=== PATIENT | female | born 1985 | race Caucasian/White ===

== ENCOUNTER → 2016-04-25 | Outpatient (CLI) | payer MEDICAID ==
[~2016-04-25] MED LIST: IBUP-1542 PO; METH0.2V PO
--- NOTE | 2016-04-25 12:44 | RADRPT ---
PROCEDURE: XR Chest. CLINICAL INDICATION: Positive PPD TECHNIQUE: Chest PA. COMPARISON: No comparison available. FINDINGS: The mediastinal structures are unremarkable. The heart is normal in size and configuration. The pu lmonary vascularity is normal. The lung [place] are unremarkable. No consolidation is identified. The pleural spaces are unremarkable. The axial skeleton is unremarkable. IMPRESSION: No active intrathoracic disease. RPTAT: HGDB .Fab Mock MD, MD Date Time Electronically viewed and signed by .Fab Mock MD, MD on 04/25/2016 12:43 .B/
== END | disposition home or self-care (01) ==
LOC: RAD 11:36
PROVIDERS: ATTEND Obstetrics & Gynecology
DX: R76.11 Nonspecific reaction to tuberculin skin test without active tuberculosis (principal)
CPT/HCPCS: 71010

== ENCOUNTER 2016-06-09 01:59 | Outpatient (CLI) | payer MEDICAID ==
[~2016-06-09] VITALS: Ht 172.7 cm; Wt 102.0 kg
[2016-06-09 02:25] VITALS: Ht 172.7 cm; Wt 102.0 kg
[2016-06-09 02:26] VITALS: BP 110/57; PULSE 86; RESP 18
[2016-06-09] MEDS ORDERED: PRENAT PO (02:36)
--- NOTE | 2016-06-09 04:15 | RADRPT ---
PROCEDURE: Obstetrical ultrasound, limited. CLINICAL INDICATION: Pelvic pain. TECHNIQUE: Multiple sonographic images of the pelvis were obtained using transabdominal technique . Images were obtained with badillo scale and color Doppler. The images were reviewed on a PACS works tation. COMPARISON: No prior studies are available for comparison. FINDINGS: There is a single living intrauterine gestation with the fetus in a vertex presentation. hear t tones of 143 beats per minute are identified. The placenta is anterior and fundal in location, gr bart 2. There is a complete placenta previa. There is no evidence of placenta abruption. Measurements were made in order to determine age. The results are as follows: BPD =7.58 cm HC =27.66 cm AC =26.66 cm FL =6.18 cm. Estimated gestational age of approximately 30 weeks and 6 days. The estimated date of delivery is 08/12/2016. The EFW = 1697 +/- 254 grams. Estimated weight percentage equals 65.8%. IMPRESSION: Single viable intrauterine gestation of approximately 30 weeks and 6 days, with an ultrasound NAJMA of 08/12/2016. Complete placenta previa. .Selvin Gutierrez MD, MD Date Time Electronically viewed and signed by .Selvin Gutierrez MD, MD on 06/09/2016 04:14 .T/
--- NOTE | 2016-06-09 04:16 | RADRPT ---
PROCEDURE: Biophysical profile. CLINICAL INDICATION: Vaginal bleeding. TECHNIQUE: Multiple sonographic images of the pelvis were obtained with transabdominal technique. Endovaginal evaluation of the cervix was also performed. COMPARISON: No prior studies are available for comparison. FINDINGS: There is a single living intrauterine gestation with the fetus in a vertex position. The placenta i s anterior and fundal in location. There is a complete placenta previa. heart tones of 146 be ats per minute are identified. There is normal amniotic fluid volume with an EILEEN of 14.6 cm. The ce rvix is closed measuring 3.6 cm. breathing movements = 2 Gross body movements = 2 tone = 2 Qualitative AFV = 2 IMPRESSION: Biophysical profile 8 out of 8. Cervical length of 3.6 cm. Complete placenta previa. .Selvin Gutierrez MD, MD Date Time Electronically viewed and signed by .Selvin Gutierrez MD, MD on 06/09/2016 04:16 .T/
--- NOTE | 2016-06-09 04:35 | PN ---
Date/Time of Note Date/Time of Note DATE: 06/09/16 TIME: 04:31 OB Subjective Subjective Subjective 30 yo P 2 @ 30 wks, w known placenta previa, had intercourse and experienced some spotting no ctx, good FM, no LOF OB Objective Objective Objective 110/57, 86, 18, 98.2 Abdomen- gravid, n/t SVE- deferred FHT- Cat I [place]- no ctx sono: complete placenta previa; no signs of abruption BPP 8/8 CL- 3.6 Abdomen: WNL Accelerations: Accelerations Present Decelerations: No Decelerations Contractions on Admission: None OB Assessment/Plan Other Assessment: 30 wks w placenta previa, prior c/d x 2 Other plan: patient advised NOT to have sex or put anything in the vagina bleeding has stopped reassuring status d/c home she has a f/u appt on MATY Rock MD Jun 09, 2016 04:35
--- NOTE | 2016-06-09 05:21 | TRIAGE ---
OB Triage Datetime Report Generated by CPN: 06/09/2016 05:21 Datetime: 06/09/2016 04:42 Stage of : OB Triage Monitor Mode: External Resting Tone [place]: Relaxed Contraction Comments: no contractions Heart Rate FHR Baseline Rate: 140 Monitor Mode: External US Variability: Moderate 6-25 bpm Accelerations: 15X15 Decelerations: None Category: Category I Pain Assessment Pain Scale: 0 Pain Presence: None/Denies Pain Type: N/A Pain Relief Measures: Comfort Measures Datetime: 06/09/2016 03:25 Stage of : OB Triage Monitor Mode: External Resting Tone [place]: Relaxed Contraction Comments: No contractions at this time. Heart Rate FHR Baseline Rate: 140 Monitor Mode: External US Variability: Moderate 6-25 bpm Accelerations: 15X15 Decelerations: None Category: Category I Pain Assessment Pain Scale: 0 Pain Presence: None/Denies Pain Type: N/A Pain Relief Measures: Comfort Measures Pain Assessment Comments: Pt states that her pain went away. Datetime: 06/09/2016 02:45 Stage of : OB Triage Datetime: 06/09/2016 02:29 Stage of : OB Triage Labor Evaluation Frequency: NONE Monitor Mode: External Pattern: Normal: <= 5 Contractions in 10 Minutes Resting Tone [place]: Relaxed Heart Rate FHR Baseline Rate: 145 Monitor Mode: External US Variability: Moderate 6-25 bpm Accelerations: 15X15 Decelerations: None Category: Category I Pain Assessment Pain Scale: 6 Pain Presence: Intermittent Pain Type: Contraction Pain Location: Abdomen; Back; Perineum Pain Goal: 3 Pain Relief Measures: Comfort Measures Datetime: 06/09/2016 02:17 Assessment Type: Admission Assessment Maternal Assessment Level of Consciousness: Fully Conscious DTR's/Clonus: DTRs 2+; No Clonus Headache: Denies Blurred Vision: No Respiratory Effort: Unlabored; Regular Rhythm; Equal Expansion Breath Sounds, Left: Clear and Equal Breath Sounds, Right: Clear and Equal Nausea/Vomiting: Denies RUQ Epigastric Pain: Denies Lower Extremities Edema: None Degree: None Upper Extremities Edema: None Degree: None Facial Edema: None Fall Risk Assessment History of Falling: (0) No Secondary Diagnosis: (0) No Ambulatory Aid: (0) Bedrest/Nurse Assist IV Therapy: (0) No Gait: (0) Normal/Bedrest/Immobile Mental Status: (0) Oriented to Own Ability Fall Score: 0 Fall Risk Score Definition: No Risk: No action required Datetime: 06/09/2016 02:14 Time of Arrival: 06/09/2016 01:45 EGA: 30.2 Arrived By: Wheelchair Arrived From: Emergency Dept Chief Complaint: Bleeding Movement: Present Contractions: Denies/Absent Rupture of Membranes: Denies Vaginal Discharge: Denies Recent Sexual Intercouse: Yes Abdominal Trauma: Not Applicable Patient Complaints: Other Time Provider Notified: 06/09/2016 02:45 Provider Notified: Initial Plan: EFM, VITALS.
== END 2016-06-09 04:55 | disposition home or self-care (01) ==
LOC: OBT 01:59 → L-D 02:01 → OBT 04:55
PROVIDERS: ATTEND Obstetrics & Gynecology
DX: O26.853 Spotting complicating pregnancy, third trimester (principal); O44.03 Complete placenta previa NOS or without hemorrhage, third trimester; Z3A.30 30 weeks gestation of pregnancy
CPT/HCPCS: 76815; 76817; 76818; Z7500; G0463

== ENCOUNTER 2016-06-26 17:54 | Outpatient (CLI) | payer MEDICAID ==
[~2016-06-26] VITALS: Ht 170.2 cm; Wt 101.5 kg
[~2016-06-26 17:54] MED LIST changes: +NITR-58 PO; +PREN-29 PO; +PRENAT PO
[2016-06-26 18:24] VITALS: Ht 170.2 cm; Wt 101.5 kg
[2016-06-26 18:25] VITALS: BP 106/59; PULSE 108; RESP 20
[2016-06-26 19:14] LABS: ADD UMIC YES; UR BILIRUBIN (Dip) NEGATIVE (NEGATIVE); UR BLOOD (Dip) 3+ (NEGATIVE); UR CLARITY CLEAR (CLEAR); UR COLOR LT. YELLOW (YELLOW); UR GLUCOSE (Dip) NEGATIVE (NEGATIVE); UR KETONES (Dip) TRACE (NEGATIVE); UR LEUKOCYTE ESTERASE (Dip) 1+ (NEGATIVE); UR NITRITE (Dip) NEGATIVE (NEGATIVE); UR TOTAL PROTEIN (Dip) NEGATIVE (NEGATIVE); UR UROBILINOGEN (Dip) 0.2 E.U./dL (0.1-1.0)
[2016-06-26 19:28] LABS: UR BACTERIA RARE; UR SQUAMOUS EPITHELIAL CELL MODERATE; URINE RBCS 0-2 /HPF (0)
[2016-06-26] MEDS ORDERED: NIFEdipine 10 MG CAP PO ONE (20:41)
--- NOTE | 2016-06-26 20:43 | QN ---
Documentation Comment 30 y/o female at 32.5 weeks sent in from clinic for C/O vaginal bleeding X 2 days Patient has complete ANTERIOR placenta previa On EFM FHTs are reactive, Has minimal U/C and almost no bleeding contractions subsided on IV hydration and SQ terbutaline will start patient and Nifedipine Steroids given and will repeat the dose next day needs perinatologist consult for placentation AGUSTINA AMADO MD Jun 26, 2016 20:43
[2016-06-26] MEDS ORDERED: BETAMET NA PHOS/AC(6 MG/ML) 5ML INJ IM SCH (21:00)
[2016-06-26] MEDS ORDERED: TERBUTALINE 1 MG/ML INJ SC ONE (21:00)
[2016-06-26] MEDS: LACTATED RINGER'S 1,000 ML IV SCH ×2 (21:14→23:28)
[2016-06-26] MEDS ORDERED: LACTATED RINGER'S 1,000 ML IV SCH (23:27)
[2016-06-27] MEDS ORDERED: LACTATED RINGER'S 1,000 ML IV SCH (21:19)
== END 2016-06-27 02:00 | disposition home or self-care (01) ==
LOC: OBT 17:54 → L-D 17:55 → OBT 06-27 02:00
PROVIDERS: ATTEND Obstetrics & Gynecology
DX: O46.8X3 Other antepartum hemorrhage, third trimester (principal); Z3A.32 32 weeks gestation of pregnancy
CPT/HCPCS: 81001; 96360; 96361; 96372; J0702; J3105; J7120; Z7500; Z7610; 81003; G0463

== ENCOUNTER 2016-06-27 21:02 | Outpatient (CLI) | payer MEDICAID ==
[~2016-06-27] VITALS: Ht 170.2 cm; Wt 102.7 kg
--- NOTE | 2016-06-27 21:54 | PN ---
Date/Time of Note Date/Time of Note DATE: 06/27/16 TIME: 21:52 OB Subjective Subjective Subjective 30 yo P2 @ 32.6 wks came for second dose of betamethasone no ctx; no complaints today yesterday she was rx'd procardia x 5wks for ctx OB Objective Objective Objective Nml VS Abdomen- gravid, n/t SVE- deferred FHT- Cat I [place]- no ctx Abdomen: WNL Accelerations: Accelerations Present Decelerations: No Decelerations Contractions on Admission: None OB Assessment/Plan Other Assessment: patient for second dose of beta - reassuring status Other plan: c/w procardia d/c home f/u w MATY Blevins MD Jun 27, 2016 21:54
[2016-06-27] MEDS ORDERED: BETAMET NA PHOS/AC(6 MG/ML) 5ML INJ IM SCH (22:00)
[2016-06-27 22:31] VITALS: BP 105/55; PULSE 97; RESP 18; Ht 170.2 cm; Wt 102.7 kg
--- NOTE | 2016-06-27 23:07 | TRIAGE ---
OB Triage Datetime Report Generated by CPN: 06/27/2016 23:06 Datetime: 06/27/2016 22:14 Stage of : OB Triage Datetime: 06/27/2016 22:00 Labor Evaluation Frequency: IRREGULAR Monitor Mode: External Duration (sec)2399: 80 Quality: Mild Pattern: Normal: <= 5 Contractions in 10 Minutes Resting Tone [place]: Relaxed Heart Rate FHR Baseline Rate: 145 Monitor Mode: External US FHR Baseline Changes: No Baseline Change Variability: Moderate 6-25 bpm Accelerations: 15X15 Decelerations: None Category: Category I Datetime: 06/27/2016 21:10 Stage of : OB Triage Assessment Type: Triage Time of Arrival: 06/27/2016 21:00 EGA: 32.6 Arrived By: Ambulatory Arrived From: Home Chief Complaint: REPEAT BETAMETHASONE #2 SHOT Movement: Present Contractions: Denies/Absent Rupture of Membranes: Denies Vaginal Bleeding: None Vaginal Discharge: Denies Recent Sexual Intercouse: Denies Abdominal Trauma: Not Applicable Patient Complaints: None Time Provider Notified: 06/27/2016 19:40 Provider Notified: DR FARR Initial Plan: CALL MD Tarik Maternal Assessment Level of Consciousness: Fully Conscious DTR's/Clonus: DTRs 2+; No Clonus Headache: Denies Blurred Vision: No Respiratory Effort: Unlabored; Regular Rhythm; Equal Expansion Breath Sounds, Left: Clear and Equal Breath Sounds, Right: Clear and Equal Nausea/Vomiting: Denies RUQ Epigastric Pain: Denies Lower Extremities Edema: None Degree: None Upper Extremities Edema: None Degree: None Facial Edema: None Temperature Route: Oral Fall Risk Assessment History of Falling: (0) No Secondary Diagnosis: (0) No Ambulatory Aid: (0) Bedrest/Nurse Assist IV Therapy: (0) No Gait: (0) Normal/Bedrest/Immobile Mental Status: (0) Oriented to Own Ability Fall Score: 0 Fall Risk Score Definition: No Risk: No action required Monitor Mode: External Monitor Mode: External US Pain Assessment Pain Scale: 0 Datetime: 06/27/2016 01:15 Stage of : OB Triage Datetime: 06/27/2016 01:00 Labor Evaluation Frequency: 0 Pattern: Normal: <= 5 Contractions in 10 Minutes Heart Rate FHR Baseline Rate: 155 Monitor Mode: External US FHR Baseline Changes: No Baseline Change Variability: Moderate 6-25 bpm Accelerations: 15X15 Decelerations: None Category: Category I Datetime: 06/27/2016 00:30 Stage of : OB Triage Datetime: 06/27/2016 00:15 Stage of : OB Triage Datetime: 06/27/2016 00:10 Stage of : OB Triage Datetime: 06/27/2016 00:00 Labor Evaluation Frequency: 2/HR Monitor Mode: External Duration (sec)2399: 50 Heart Rate FHR Baseline Rate: 145 Monitor Mode: External US FHR Baseline Changes: No Baseline Change Variability: Moderate 6-25 bpm Accelerations: 15X15 Decelerations: None Category: Category I Datetime: 06/26/2016 23:00 Labor Evaluation Frequency: IRREGULAR Monitor Mode: External Quality: Mild Pattern: Normal: <= 5 Contractions in 10 Minutes Resting Tone [place]: Relaxed Heart Rate FHR Baseline Rate: 155 Monitor Mode: External US FHR Baseline Changes: No Baseline Change Variability: Moderate 6-25 bpm Accelerations: 15X15 Decelerations: None Category: Category I Datetime: 06/26/2016 22:00 Labor Evaluation Frequency: IRREGULAR Monitor Mode: External Duration (sec)2399: 60 Quality: Mild Pattern: Normal: <= 5 Contractions in 10 Minutes Resting Tone [place]: Relaxed Heart Rate FHR Baseline Rate: 145 Monitor Mode: External US FHR Baseline Changes: No Baseline Change Variability: Moderate 6-25 bpm Accelerations: 15X15 Decelerations: None Category: Category I Datetime: 06/26/2016 21:53 Stage of : OB Triage Datetime: 06/26/2016 21:00 Labor Evaluation Frequency: IRREGULAR Monitor Mode: External Duration (sec)2399: 60 Quality: Mild Pattern: Normal: <= 5 Contractions in 10 Minutes Resting Tone [place]: Relaxed Heart Rate FHR Baseline Rate: 145 Monitor Mode: External US FHR Baseline Changes: No Baseline Change Variability: Moderate 6-25 bpm Accelerations: 15X15 Decelerations: None Category: Category I Datetime: 06/26/2016 20:00 Labor Evaluation Frequency: 2-3 Monitor Mode: External Duration (sec)2399: 60 Quality: Mild Pattern: Normal: <= 5 Contractions in 10 Minutes Resting Tone [place]: Relaxed Heart Rate FHR Baseline Rate: 145 Monitor Mode: External US FHR Baseline Changes: No Baseline Change Variability: Moderate 6-25 bpm Accelerations: 15X15 Decelerations: None Category: Category I Datetime: 06/26/2016 19:43 Stage of : OB Triage Accelerations: None Datetime: 06/26/2016 19:13 Pain Assessment Pain Scale: 0 Pain Presence: None/Denies Datetime: 06/26/2016 19:12 Assessment Type: Triage Maternal Assessment Level of Consciousness: Fully Conscious DTR's/Clonus: DTRs 2+; No Clonus Headache: Denies Blurred Vision: No Respiratory Effort: Unlabored; Regular Rhythm; Equal Expansion Breath Sounds, Left: Clear and Equal Breath Sounds, Right: Clear and Equal Nausea/Vomiting: Denies RUQ Epigastric Pain: Denies Lower Extremities Edema: None Degree: None Upper Extremities Edema: None Degree: None Facial Edema: None Fall Risk Assessment History of Falling: (0) No Secondary Diagnosis: (0) No Ambulatory Aid: (0) Bedrest/Nurse Assist IV Therapy: (0) No Gait: (0) Normal/Bedrest/Immobile Mental Status: (0) Oriented to Own Ability Fall Score: 0 Fall Risk Score Definition: No Risk: No action required Datetime: 06/26/2016 19:00 Stage of : OB Triage Maternal Assessment Level of Consciousness: Fully Conscious Headache: Denies Nausea/Vomiting: Denies RUQ Epigastric Pain: Denies Labor Evaluation Frequency: 0 Monitor Mode: External Resting Tone [place]: Relaxed Heart Rate FHR Baseline Rate: 150 Monitor Mode: External US FHR Baseline Changes: No Baseline Change Variability: Moderate 6-25 bpm Accelerations: 15X15 Decelerations: None Pain Assessment Pain Scale: 0 Pain Presence: None/Denies Vaginal Exam Membrane Status: Intact Vaginal Bleeding: None Datetime: 06/26/2016 18:15 Stage of : OB Triage Maternal Assessment Level of Consciousness: Fully Conscious DTR's/Clonus: DTRs 2+ Headache: Denies Blurred Vision: No Respiratory Effort: Unlabored Breath Sounds, Left: Clear and Equal Breath Sounds, Right: Clear and Equal Nausea/Vomiting: Denies RUQ Epigastric Pain: Denies Facial Edema: None Labor Evaluation Frequency: 0 Monitor Mode: External Resting Tone [place]: Relaxed Heart Rate FHR Baseline Rate: 150 Monitor Mode: External US FHR Baseline Changes: No Baseline Change Variability: Moderate 6-25 bpm Accelerations: 10X10 Decelerations: None Category: Category I Pain Assessment Pain Scale: 0 Pain Presence: None/Denies Vaginal Exam Membrane Status: Intact Vaginal Bleeding: None Datetime: 06/26/2016 18:05 Arrived By: Wheelchair Arrived From: Dr. Office Chief Complaint: SPOTTING SINCE SATURDAY 06/24; HAD A RIGHT UPPER QUADRANT PAIN WHICH SUBSIDED WHEN S HE DRANK WATER; PT HAD 3 GTT TODAY; URINARY FREQUENCY Movement: Present Contractions: UNSURE Rupture of Membranes: Denies Vaginal Bleeding: Scant Vaginal Discharge: Present Recent Sexual Intercouse: Denies Abdominal Trauma: Not Applicable Patient Complaints: Urinary Frequency Patient Complaints: Urinary Frequency (Annotations: Data stored by N on behalf of user) Additional Patient Complaints: HX OF PLACENTA PREVIA Time Provider Notified: 06/26/2016 18:20 Initial Plan: EFM; UA; Datetime: 06/09/2016 02:17 Fall Score: 0 Fall Risk Score Definition: No Risk: No action required Datetime: 06/09/2016 02:14 EGA: 30.2
== END 2016-06-27 22:45 | disposition home or self-care (01) ==
LOC: L-D 21:02 → OBT 21:02
PROVIDERS: ATTEND Obstetrics & Gynecology
DX: O26.893 Other specified pregnancy related conditions, third trimester (principal); Z3A.32 32 weeks gestation of pregnancy; Z79.51 Long term (current) use of inhaled steroids
CPT/HCPCS: 96372; G0463